=== PATIENT | male | born 1970 | race Caucasian/White ===

== ENCOUNTER 2017-10-31 14:19 | Emergency (ER) | payer MEDICAID, OTHER ==
--- NOTE | 2017-10-31 14:56 | EDM.PDOC ---
ED HPI GENERAL MEDICAL PROBLEM - General Chief Complaint: Laceration Stated Complaint: CUT PART OF FINGER OFF Time Seen by Provider: 10/31/17 14:35 Source of Information: Reports: Patient History Limitations: Reports: No Limitations - History of Present Illness INITIAL COMMENTS - FREE TEXT/NARRATIVE: 47 yo male presented to the clinic today with an injury to his L ring finger flores aspect. He was wearing a glove and it got caught up in a drill bit and tore the glove and the skin off the distal L 5th finger as well. In the clinic they cleaned up the wound and placed a dressing on it and referred him to the ER. He is UTD on his tetanus. 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) Left Hand Pain Score (Numeric/FACES): 9 - Related Data Allergies Allergy/AdvReac Type Severity Reaction Status Date / Time No Known Allergies Allergy Verified 10/31/17 14:43 Home Meds: Home Meds cephALEXin [Cephalexin] 500 mg PO TID #10 capsule 10/31/17 [Rx] ED ROS GENERAL - Review of Systems Review Of Systems: See Below Constitutional: Reports: No Symptoms HEENT: Reports: No Symptoms Respiratory: Reports: No Symptoms Cardiovascular: Reports: No Symptoms GI/Abdominal: Reports: No Symptoms Musculoskeletal: Reports: Hand Pain (left, ring finger distally) Skin: Reports: Wound (L 5th finger) Neurological: Reports: No Symptoms ED EXAM, SKIN/RASH Exam: See Below Exam Limited By: No Limitations General Appearance: Alert, WD/WN, No Apparent Distress Neurological: Alert, Oriented, CN II-XII Intact, Normal Cognition, No Motor/ Sensory Deficits Psychiatric: Normal Affect, Normal Mood Skin: Warm, Dry, Normal Color, No Rash, Wound/Incision (L 5th finger has the distal pad "degloved", no active bleeding, no bone exposed.) Course - Vital Signs Text/Narrative:: Discussed with orthopedics from [facility] @ 1510h, after viewing X-rays and photos felt he needs orthopedic f/u, but not skin grafting by a hand surgeon. Patient would like to f/u in [place] as it is closer to his home in [place], [place]. Last Recorded V/S: Last Vital Signs Temp 36.3 C 10/31/17 14:32 Pulse 70 10/31/17 14:32 Resp 18 10/31/17 14:32 BP 127/86 10/31/17 14:32 Pulse Ox 97 10/31/17 14:32 - Orders/Labs/Meds Orders: Active Orders 24 hr Category Date Time Status Fingers Fifth Digit Lt F4 [CR] Stat Exams 10/31/17 15:12 Taken Meds: Medications Discontinued Medications Generic Name Dose Route Start Last Admin Trade Name Freq PRN Reason Stop Dose Admin Bacitracin 1 dose 10/31/17 15:44 10/31/17 15:49 Bacitracin Oint 1 Gm TOP 10/31/17 15:45 1 dose ONETIME ONE Administration Cephalexin 1,000 mg 10/31/17 15:43 10/31/17 15:48 Keflex PO 10/31/17 15:44 1,000 mg ONETIME ONE Administration - Radiology Interpretation Free Text/Narrative:: finger X-ray-Tuft fx and avulsion fx of distal DIP joint. Departure - Departure Time of Disposition: 16:25 Disposition: Home, Self-Care 01 Condition: Fair Clinical Impression: Open fracture of tuft of distal phalanx of finger Avulsion of skin of finger Qualifiers: Encounter type: initial encounter Qualified Code(s): S61.209A - Unspecified open wound of unspecified finger without damage to nail, initial encounter Avulsion fracture of middle phalanx of finger Qualifiers: Encounter type: initial encounter Fracture type: open Qualified Code(s): S62.629B - Displaced fracture of medial phalanx of unspecified finger, initial encounter for open fracture - Discharge Information *PRESCRIPTION DRUG MONITORING PROGRAM REVIEWED*: No *COPY OF PRESCRIPTION DRUG MONITORING REPORT IN PATIENT GALILEO: No Prescriptions: cephALEXin [Cephalexin] 500 mg PO TID #10 capsule Referrals: PCP,None [Primary Care Provider] - Forms: ED Department Discharge Additional Instructions: Keep finger elevated above your heart. Keep wound clean and dry. Someone will contact you from [facility] [place] about and appt. If you haven't heard from anyone by tomorrow morning call us back. Take cephelexin as directed until gone. Take acetaminophen 1000 mg every 6 hrs as needed for pain relief. Add ibuprofen 400 mg every 6 hrs as needed for more pain relief. Must wear splint at all times. - My Orders Last 24 Hours: My Active Orders 10/31/17 15:12 Fingers Fifth Digit Lt F4 [CR] Stat - Assessment/Plan Last 24 Hours: My Active Orders 10/31/17 15:12 Fingers Fifth Digit Lt F4 [CR] Stat
[2017-10-31] MEDS ORDERED: Cephalexin 250 MG Cap PO ONE (15:43)
[2017-10-31] MEDS ORDERED: Bacitracin Oint 1 GM U/D Packet TOP ONE (15:44)
--- NOTE | 2017-11-02 08:59 | CR ---
Fingers Fifth Digit Lt F4 HISTORY: degloving injury FINDINGS: There is amputation of the distal tip of the left fifth finger. Soft tissues and a small po rtion of the tuft of the distal phalanx. No other fracture is identified. There are degenerative and hypertrophic changes at the DIP joint. IMPRESSION: Amputation distal tip left fifth finger including soft tissues and a small portion of the tuft of the distal phalanx.
== END 2017-10-31 16:32 | disposition home or self-care (01) ==
LOC: JP.ED 14:19
DX: S62.637B Displaced fracture of distal phalanx of left little finger, initial encounter for open fracture (principal); W23.0XXA Caught, crushed, jammed, or pinched between moving objects, initial encounter
CPT/HCPCS: 73140; 99284; A9270; 99283

== ENCOUNTER 2020-05-26 08:54 | Emergency (ER) | payer OTHER ==
--- NOTE | 2020-05-26 09:19 | EDM.PDOC ---
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 He has a pHx of prior rotator cuff injury with repair about 10 yrs ago here. Has pain and decreased movement of that R arm since Tuesday. 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) Right Shoulder Pain Score (Numeric/FACES): 10 - Related Data Allergies Allergy/AdvReac Type Severity Reaction Status Date / Time No Known Allergies Allergy Verified 10/31/17 14:43 Home Meds: Home Meds Acetaminophen/HYDROcodone [Dolomite 325-5 MG] 1 - 2 tab PO Q6H PRN #16 tab 05/26/20 [Rx] Celecoxib [CeleBREX] 100 mg PO BID 05/26/20 [History] Cyclobenzaprine [Flexeril] 10 mg PO TID 05/26/20 [History] Pravastatin [Pravachol] 40 mg PO DAILY 05/26/20 [History] Past Medical History - Past Health History Medical/Surgical History: Denies Medical/Surgical History - Infectious Disease History Infectious Disease History: Reports: Chicken Pox - Past Surgical History Musculoskeletal Surgical History: Reports: Shoulder Surgery Social & Family History - Tobacco Use Tobacco Use Status *Q: Current Every Day Tobacco User Years of Tobacco use: 25 Packs/Tins Daily: 1 - Caffeine Use Caffeine Use: Reports: Coffee - Recreational Drug Use Recreational Drug Use: No Review of Systems - Review of Systems Review Of Systems: See Below Constitutional: Reports: No Symptoms Musculoskeletal: Reports: Shoulder Pain (right) Skin: Reports: No Symptoms Neurological: Reports: No Symptoms ED EXAM, GENERAL - Physical Exam Exam: See Below Exam Limited By: No Limitations General Appearance: Alert, WD/WN, No Apparent Distress Extremities: Normal Inspection, No Pedal Edema, Limited Range of Motion (of R shoulder, unable to abduct past 90 degrees). No: Normal Range of Motion, Non- Tender, Pedal Edema, Joint Swelling, Redness Neurological: Alert, Oriented, CN II-XII Intact, Normal Cognition, No Motor/Sensory Deficits Psychiatric: Normal Affect, Normal Mood Skin Exam: Warm, Dry, Intact, Normal Color, No Rash Course - Vital Signs Last Recorded V/S: Last Vital Signs Temp 36.3 C 05/26/20 09:08 Pulse 86 05/26/20 09:08 Resp 16 05/26/20 09:08 BP 136/85 05/26/20 09:08 Pulse Ox 95 05/26/20 09:08 - Orders/Labs/Meds Meds: Medications Discontinued Medications Generic Name Dose Route Start Last Admin Trade Name Freq PRN Reason Stop Dose Admin Hydrocodone Bitart/Acetaminophen 1 tab 05/26/20 09:45 Acetaminophen/Hydrocodone 325-5 Mg Tab PO 05/26/20 09:46 ONETIME ONE - Radiology Interpretation Free Text/Narrative:: R shoulder X-ray-neg Departure - Departure Time of Disposition: 09:55 Disposition: Home, Self-Care 01 Condition: Fair Clinical Impression: Right rotator cuff tear Qualifiers: Rotator cuff tear extent: unspecified tear extent Rotator cuff tear trauma status: traumatic Encounter type: initial encounter Qualified Code(s): S46.011A - Strain of muscle(s) and tendon(s) of the rotator cuff of right shoulder, initial encounter - Discharge Information *PRESCRIPTION DRUG MONITORING PROGRAM REVIEWED*: No *COPY OF PRESCRIPTION DRUG MONITORING REPORT IN PATIENT GALILEO: No Prescriptions: Acetaminophen/HYDROcodone [Dolomite 325-5 MG] 1 - 2 tab PO Q6H PRN #16 tab PRN Reason: Pain Referrals: Cristy Copeland MD [Primary Care Provider] - Forms: ED Department Discharge, ED Return to Work/School Form Additional Instructions: Take ibuprofen 400 mg every 6 hrs with food for pain relief. Wear your sling at all times. F/U with Dr. Zhu regarding further workup. Add if needed for additional pain relief either acetaminophen 1000 mg every 6 hrs OR Dolomite as directed. Sepsis Event Note (ED) - Evaluation Sepsis Screening Result: No Definite Risk - Focused Exam Vital Signs: Vital Signs Temp Pulse Resp BP Pulse Ox 05/26/20 09:08 36.3 C 86 16 136/85 95
--- NOTE | 2020-05-26 09:38 | CR ---
Shoulder Comp Rt CLINICAL HISTORY: Pain, fall FINDINGS: There is no acute fracture or dislocation in the right shoulder. There is some deformity in the superior lateral aspect of the humeral head which appears to be an old Hill-Sachs deformity. IMPRESSION: Probable old Hill-Sachs deformity of the superior lateral humeral head No acute fracture or dislocation
[2020-05-26] MEDS: Acetaminophen/HYDROcodone 325-5 MG Tab PO ONE (10:08)
== END 2020-05-26 10:00 | disposition home or self-care (01) ==
LOC: JP.ED 08:54
DX: S46.011A Strain of muscle(s) and tendon(s) of the rotator cuff of right shoulder, initial encounter (principal); Z72.0 Tobacco use; W18.30XA Fall on same level, unspecified, initial encounter
CPT/HCPCS: 73030-26-RT; 73030-RT; 99283

== ENCOUNTER 2020-06-23 07:18 | Day surgery (SDC) | payer OTHER ==
[2020-06-23] MEDS ORDERED: Lactated Ringers 1,000 ML IV SCH (08:00)
[2020-06-23] MEDS ORDERED: ceFAZolin 2 GM in Premix Bag 1 BAG IV ONE (08:00)
[2020-06-23] MEDS ORDERED: Nozin Nasal Sanitizer NASBOTH ONE (08:00)
[2020-06-23] MEDS ORDERED: Midazolam 1 MG/ML 2 ML SDV ONE (09:27)
[2020-06-23] MEDS ORDERED: Propofol 200 MG/20 ML SDV ONE ×3 (09:27→10:47)
[2020-06-23] MEDS ORDERED: fentaNYL 100 MCG/2 ML SDV ONE ×2 (09:27→10:49)
[2020-06-23] MEDS ORDERED: Bupivacaine 0.5% 30 ML SDV ONE ×2 (09:42→09:46)
[2020-06-23] MEDS ORDERED: Lactated Ringers 1,000 ML ONE (11:17)
--- NOTE | 2020-07-09 21:22 | OR ---
DATE OF PROCEDURE: 06/23/2020 SURGEON: Gordy Zhu MD PREOPERATIVE DIAGNOSIS: Right rotator cuff tear. POSTOPERATIVE DIAGNOSIS: Right rotator cuff tear, recurrent. PROCEDURES: 1. Arthroscopy, right shoulder with repair right rotator cuff. 2. Subacromial decompression with acromioplasty. 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 INDICATIONS: Mayank is a 49-year-old gentleman with history of previous rotator cuff repair, who had been doing well with it and no difficulties until he sustained a fall at work. Examination and imaging following the fall are consistent with full- thickness tear of the rotator cuff. He therefore brought to the operating room for repair. Risks, benefits, and potential complications of the procedure were discussed. DESCRIPTION OF PROCEDURE: After adequate anesthesia was obtained, the patient placed in a lateral decubitus position and secured with a ruffin bag positioner. Right shoulder and arm were then prepped and draped in sterile fashion and 10 pounds of traction was placed through the traction unit. A standard posterior portal was established. The scope was introduced. The glenohumeral joint was inspected, which revealed no articular cartilage damage to the humeral head. Glenoid showed some mild thinning in the central portion without significant degenerative changes. The labrum was intact. Biceps tendon and biceps anchor were intact. Subscapularis showed no evidence of a tear. Undersurface of the rotator cuff showed evidence of a full-thickness tear with some fraying of the tendon. The scope was withdrawn and placed into the subacromial space. Lateral portal was established. The bursa was cleared for visualization. Inspection of the cuff revealed a full-thickness tear with a tattered edge consistent with recurrent tear and tendon pulling through previous sutures. One of the sutures was identified, still intact in the anchor, but otherwise no longer attached in the tendon. The suture grasper was used to remove the suture. Evidence of some impingement was noted against some scar tissue and residual acromion. Undersurface of the acromion was cleared of soft tissue with the SerFas ablation wand. Moderate hook was present which was removed with a bur, bevelling this medially and posteriorly. A portion of the tendon was still intact with significant fraying and evidence of pulling away from the previous repair. This was debrided with shaver. The footprint of the cuff was debrided with a shaver and then lightly decorticated. Two Mitek Healix suture anchors were placed. Both suture pairs from each anchor were then placed through the tendon with the ExpresSew device in mattress fashion. These were tied down from anterior to posterior. One pair of the sutures from the anterior anchor and one from the posterior anchor were placed through a knotless anchor which was secured into the lateral tuberosity with a suture bridge lateral row technique. This was repeated with the other pair from the anterior and posterior anchors and placed in a more posterior position resulting in a crisscross suture bridge and a very secure repair. The arm was taken through internal and external rotation. Repair appeared very stable. Scope was withdrawn. Shoulder was drained. Port sites were closed in a standard fashion and sterile dressing was applied. The patient tolerated the procedure well. There were no complications and taken from the operating room in stable condition. Gordy Zhu MD /[id number]
== END 2020-06-23 13:04 | disposition home or self-care (01) ==
LOC: JP.SDS 07:18
PROVIDERS: ATTEND Specialist
DX: M75.121 Complete rotator cuff tear or rupture of right shoulder, not specified as traumatic (principal); M25.811 Other specified joint disorders, right shoulder; F17.200 Nicotine dependence, unspecified, uncomplicated
CPT/HCPCS: 29826; 29827; 36415; 80053; 85027; A9270; C1713; J0690; J2250; J2704; J3010; J3490; J7120